=== PATIENT | male | born 1960 | race Caucasian/White ===

== ENCOUNTER 2024-01-09 20:21 | Emergency (ER) | payer OTHER ==
[~2024-01-09] VITALS: Ht 154.9 cm; Wt 101.2 kg
[2024-01-09 20:37] VITALS: TEMP 99.5
[2024-01-09] MEDS ORDERED: LIDOCAINE 5% (PATCH) 1 EA PATCH TP ONE (21:37)
[2024-01-09] MEDS ORDERED: KETOROLAC TROMETHAMINE 15 MG/ML VIAL ONE (21:37)
[2024-01-09] MEDS ORDERED: AZITHROMYCIN 250 MG TABLET ONE (21:37)
[2024-01-09] MEDS ORDERED: LIDO30AD10 TP (21:39)
[2024-01-09] MEDS ORDERED: AZIT250T13 PO (21:39)
[2024-01-09] MEDS ORDERED: BENZ-13 PO (21:39)
[2024-01-09] MEDS: AZITHROMYCIN 250 MG TABLET PO ONE (21:46)
[2024-01-09] MEDS: LIDOCAINE 5% (PATCH) 1 EA PATCH TP STA (21:46)
[2024-01-09] MEDS: KETOROLAC TROMETHAMINE 15 MG/ML VIAL IM ONE (21:47)
[2024-01-09 22:02] VITALS: BP 131/78; O2SAT 98
== END 2024-01-09 22:03 | disposition home or self-care (01) ==
LOC: ER 20:27
DX: M54.2 Cervicalgia (principal); R05.9 Cough, unspecified; I10 Essential (primary) hypertension; E78.5 Hyperlipidemia, unspecified; G47.30 Sleep apnea, unspecified
CPT/HCPCS: 99283; 96372; J1885

== ENCOUNTER 2024-01-10 22:36 | Emergency (ER) | payer OTHER ==
[~2024-01-10 22:36] MED LIST: AZIT250T13 PO; BENZ-13 PO; LIDO30AD10 TP
== END 2024-01-10 23:47 | disposition left against medical advice (07) ==
LOC: ER 22:38
DX: M54.2 Cervicalgia (principal); M25.511 Pain in right shoulder; Z53.21 Procedure and treatment not carried out due to patient leaving prior to being seen by health care provider